=== PATIENT | male | born 1990 ===

== ENCOUNTER 2018-12-17 14:58 | Emergency (ER) | payer SELFPAY ==
--- NOTE | 2018-12-17 15:31 | ED ---
Head Injury - HPI Summary HPI Summary: 28 yo male [place] [facility] [place]p head [place]. 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 His head was jolted to the left and he felt a pull in his neck. No LOC. Within the next 15-20minutes he began to have a mild headache and increased neck pain. 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 He came to the ED for eval. Currently he endorses a headache and neck pain. He denies vision changes, dizziness, weakness, numbness, tingling, n/v. Denies PMHx. - History Of Current Complaint Chief Complaint: EDHeadInjury Stated Complaint: HEADACHE PER PT Time Seen by Provider: 12/17/18 15:00 Hx Obtained From: Patient Mechanism Of Injury: Blunt Trauma Severity Currently: Moderate Severity Initially: Severe Pain Intensity: 6 Pain Scale Used: 0-10 Numeric - Allergies/Home Medications Allergies/Adverse Reactions: Allergies Allergy/AdvReac Type Severity Reaction Status Date / Time No Known Allergies Allergy Verified 12/17/18 15:02 Home Medications: Home Medications Naproxen Sodium [Aleve] 220 mg PO Q8H PRN 12/17/18 [History Confirmed 12/17/18] PMH/Surg Hx/FS Hx/Imm Hx Endocrine/Hematology History: Denies: Hx Blood Disorders, Hx Diabetes Cardiovascular History: Denies: Hx Cardiac Arrest Respiratory History: Denies: Hx Asthma, Hx Chronic Obstructive Pulmonary Disease (COPD) GI History: Denies: Hx Gall Bladder Disease History: Denies: Hx Acute Renal Failure Musculoskeletal History: Denies: Hx Arthritis, Hx Back Problems, Hx Fibromyalgia, Hx Gout Neurological History: Denies: Hx CVA, Hx Headaches, Hx Migraine Psychiatric History: Denies: Hx Anxiety, Hx Depression - Surgical History Surgical History: None - Immunization History Immunizations Up to Date: Yes Infectious Disease History: No Infectious Disease History: Denies: Traveled Outside the [place] in Last 30 Days - Family History Known Family History: Positive: Non-Contributory - Social History Occupation: Employed Full-time Lives: With Family Alcohol Use: Occasionally Substance Use Type: Reports: None Smoking Status (MU): Never Smoked Tobacco Review of Systems Constitutional: Negative Eyes: Negative ENT: Negative Cardiovascular: Negative Respiratory: Negative Gastrointestinal: Negative Genitourinary: Negative Musculoskeletal: Other - Neck pain. Headache Skin: Negative Positive: Headache Psychological: Normal All Other Systems Reviewed And Are Negative: Yes Physical Exam - Summary Physical Exam Summary: GENERAL: NAD. WDWN. No pain distress. SKIN: No rashes, sores, ulcers, masses, lesions. HEENT: Head: AT/NC. No raccoon eyes or battles sign. Eyes: PERRLA. EOM intact. NTTP orbits without step off or ecchymosis. Ears: Hearing grossly normal. TMs intact, no bulging, erythema, or edema. No hemotympanum Nose: Nasal mucosa pink and moist without epistaxis. NTTP maxillary and frontal sinus. NECK: Supple. FROM, pain with flexion. Mild TTP along upper trapezius. Negative spurlings. CHEST: CTAB. No r/r/w. No accessory muscle use. Breathing comfortably and in no distress. CV: RRR. Without m/r/g. Pulses intact. Brisk cap refill. MSK: FROM in B/L UEs and LEs with symmetric strength. NEURO: A&Ox3. 3 word recall, remote, recent memory, ability to follow 2-step directions, and attention intact. CN: II: Peripheral dc intact. Vision normal. III, IV, : EOMI. No nystagmus. PERRLA. V: Sensations intact and symmetric. Opens mouth and clenches teeth. VII: No facial asymmetry. Forehead wrinkles. Grins, shuts eyes, frowns, puffs cheeks. VIII: Hearing intact to finger rub. IX, X: Swallows and coughs. Uvula midline. XI: Shrugs shoulders. Turns head against resistance. XII: No tongue deviation [id number] are intact. Gait with normal base. Romberg: maintains balance, no pronator drift. Normal speech. No facial drooping. Sensations intact C4-T1 b/l. PSYCH: Age appropriate behavior. Triage Information Reviewed: Yes Vital Signs On Initial Exam: Initial Vitals Temp Pulse Resp BP Pulse Ox 98.3 F 63 17 160/95 100 12/17/18 15:00 12/17/18 15:00 12/17/18 15:00 12/17/18 15:00 12/17/18 15:00 Vital Signs Reviewed: Yes Diagnostics - Vital Signs Vital Signs Temp Pulse Resp BP Pulse Ox 12/17/18 15:00 98.3 F 63 17 160/95 100 - Laboratory Lab Statement: Any lab studies that have been ordered have been reviewed, and results considered in the medical decision making process. - CT brain and cervical CT Interpretation Completed By: Radiologist Summary of CT Findings: IMPRESSION: 1. No calvarial fracture or acute intracranial hemorrhage. 2. No acute fracture or dislocation of the cervical spine. Head Injury Course/Dx Course Of Treatment: Low impact head injury. CT results as above. Suspect mild concussion with neck strain/spasm. Advised to rest and apply heat. Rx for naproxen and may take tylenol as directed. Advised to f/u with Occupational Medicine Dr. Chamberlain if he has continued symptoms. - Diagnoses Provider Diagnoses: Head injury, Neck strain Discharge - Sign-Out/Discharge Documenting (check all that apply): Patient Departure Patient Received Moderate/Deep Sedation with Procedure: No - Discharge Plan Condition: Stable Disposition: HOME Prescriptions: Naproxen [Naproxen 500 mg tab] 500 mg PO BID PRN #30 tablet PRN Reason: Pain Patient Education Materials: Cervical Strain (DC), Head Injury (ED) Forms: *Work Release Referrals: No Primary Care Phys,NOPCP [Primary Care Provider] - Yasir Chamberlain MD [Medical Doctor] - If Needed Additional Instructions: If you develop a fever, shortness of breath, chest pain, new or worsening symptoms - please call your PCP or go to the ED immediately. Your blood pressure was high at todays visit. Please see your primary provider within 4 weeks for recheck and re-evaluation. 1) Rest and apply heat intermittently throughout the day to your neck to reduce muscle pain 2) Take the naproxen as directed for discomfort. Do not take ibuprofen/aleve/ motrin with this as these medications are related and may interact 3) If your symptoms do not improve in 2-3 days or if you do not believe you can return to work on 12/20, please call Dr. Chamberlain (Work related injury doctor) at the number below to schedule an appointment within 3-5 days. - Billing Disposition and Condition Condition: STABLE Disposition: Home - Attestation Statements Provider Attestation: I am administratively signing this document. I was available for consultation for this patient. I did not evaluate the patient, did not have a doctor/patient relationship with the patient, or participate in any medical decision making or disposition decisions unless I am specifically named in the chart as having consulted on the patient. If I have consulted on the patient, please see my own ED note on the patient encounter. Kaylah Hammond MD
== END 2018-12-17 17:03 | disposition home or self-care (01) ==
LOC: ED 14:58
DX: S09.90XA Unspecified injury of head, initial encounter (principal); S16.1XXA Strain of muscle, fascia and tendon at neck level, initial encounter; W20.8XXA Other cause of strike by thrown, projected or falling object, initial encounter; Y92.512 Supermarket, store or market as the place of occurrence of the external cause; Y99.0 Civilian activity done for income or pay
CPT/HCPCS: 70450; 72125; 99282